=== PATIENT | male | born 1960 | race Caucasian/White ===

== ENCOUNTER 2023-07-31 18:20 | Emergency (ER) | payer MEDICARE, OTHER ==
[~2023-07-31] VITALS: Ht 190.5 cm; Wt 115.2 kg
[~2023-07-31 18:20] MED LIST: LEVOFLOXACIN500 MG PO; LIPITOR20 MG PO; PERCOCET 325 MG1 TA7 PO; QUINAPRIL20 MG PO; VICODIN 500 MG-1 TAB PO
[2023-07-31] MEDS ORDERED: Lactated Ringer's Solution 1,000 ML IV SCH (18:25)
[2023-07-31] MEDS ORDERED: MORPHINE Sulfate 2 MG/ML SYR IV ONE (18:25)
[2023-07-31] MEDS ORDERED: Ondansetron Hydrochloride 4 MG/2 ML VIAL IV ONE (18:25)
[2023-07-31 18:42] LABS: BASO % 0.5 % (0.0-1.0); EOS # 0.1 10*3/uL (0.0-0.4); EOS % 1.4 % (1.0-4.0); HEMATOCRIT 37.9 % (42.0-52.0); LYMPH # 1.2 10*3/uL (1.3-4.4); LYMPH % 18.8 % (27.0-41.0); MEAN CELL VOLUME 93.3 fl (80.0-94.0); MEAN CORPUSCULAR HGB 32.5 pg (27.0-31.0); MEAN CORPUSCULAR HGB CONC 34.8 g/dl (33.0-37.0); MEAN PLATELET VOLUME 9.1 fl (9.6-12.3); MONO # 0.5 10*3/uL (0.1-1.0); MONO % 7.7 % (3.0-9.0); NEUT # 4.5 10*3/uL (2.3-7.9); NEUT % 71.4 % (47.0-73.0); PLATELET COUNT AUTOMATED 217 10*3/uL (130-400); RED BLOOD COUNT 4.06 10*6/uL (4.50-5.90); RED CELL DISTRI WIDTH 12.1 % (0-14.5); WHITE BLOOD COUNT 6.3 10*3/uL (4.8-10.8)
[2023-07-31] MEDS ORDERED: MORPHINE Sulfate 2 MG/ML SYR ONE (18:49)
[2023-07-31 19:03] LABS: ACT PARTIAL THROMBO TIME 25.1 SECONDS (20.0-32.1); ALKALINE PHOSPHATASE 81 U/L (46-116); BUN 11 mg/dl (9-23); CHLORIDE 102 mmol/L (98-107); POTASSIUM 3.8 mmol/L (3.4-5.1); SGPT/ALT 24 U/L (5-49); TOTAL PROTEIN 6.8 gm/dL (6.0-8.0)
[2023-07-31 19:50] VITALS: BP 111/59
[2023-07-31] MEDS ORDERED: Lidocaine Hydrochloride 15 ML UDC PO STA (20:08)
[2023-07-31] MEDS ORDERED: MG-AL HYDROXIDE/SIMETICONE 30 ML UDC PO STA (20:08)
[2023-07-31] MEDS ORDERED: Dicyclomine Hydrochloride 20 MG/10 ML OSYR PO STA (20:08)
== END 2023-07-31 21:46 | disposition home or self-care (01) ==
LOC: ED 18:20
PROVIDERS: Emergency Medicine
DX: R07.89 Other chest pain (principal); R06.02 Shortness of breath; I10 Essential (primary) hypertension; E78.00 Pure hypercholesterolemia, unspecified; Z91.040 Latex allergy status; Z88.8 Allergy status to other drugs, medicaments and biological substances; Z90.89 Acquired absence of other organs; Z98.890 Other specified postprocedural states